=== PATIENT | male | born 1980 ===

== ENCOUNTER 2022-12-12 19:05 | Emergency (ER) | payer BC ==
[2022-12-12] MEDS ORDERED: Bupivacaine 0.5% 10 ML SDV INJECT ONE (21:20)
[2022-12-12] MEDS ORDERED: Amoxicillin/Clavulanate K 875-125 MG Tab ONE (21:30)
[2022-12-12] MEDS ORDERED: Bacitracin Oint 1 GM U/D Packet TOP ONE (22:49)
== END 2022-12-12 21:42 | disposition home or self-care (01) ==
LOC: LB.ED 19:05
DX: S30.851A Superficial foreign body of abdominal wall, initial encounter (principal); W45.8XXA Other foreign body or object entering through skin, initial encounter
CPT/HCPCS: 10120; 74018; 99283; A9270-GY; J3490